=== PATIENT | female | born 1980 | race Caucasian/White ===

== ENCOUNTER → 2017-05-10 | Outpatient (REF) | payer OTHER ==
[~2017-05-10] MED LIST: IBU600 PO; ONDA4TAB PO; OXYC1TAB54 PO
[2017-05-10 15:31] LABS: PLATELET COUNT, AUTOMATED 236 K/uL (150-450)
== END ==
LOC: ZZSENDIN 11:42
PROVIDERS: ATTEND Student in an Organized Health Care Education/Training Program
DX: Z36.89 Encounter for other specified antenatal screening (principal); Z3A.00 Weeks of gestation of pregnancy not specified
CPT/HCPCS: 80074; 81001; 85025; 86592; 86762; 86850; 86900; 86901; 87088; 87491; 87591

== ENCOUNTER → 2017-05-20 | Outpatient (CLI) | payer OTHER | LOC: LAB 08:22 | PROVIDERS: ATTEND Student in an Organized Health Care Education/Training Program | DX: Z34.91 Encounter for supervision of normal pregnancy, unspecified, first trimester (principal) | CPT/HCPCS: 36415; 81001; 82310; 82374; 82435; 82565; 82947; 84132; 84295; 84520; 85027; 86592; 86762; 86850; 86900; 86901; 87088; 87340; 87491; 87591 ==

== ENCOUNTER → 2017-08-22 | Outpatient (CLI) | payer OTHER | LOC: LAB 11:34 | PROVIDERS: ATTEND Obstetrics & Gynecology | DX: Z36.89 Encounter for other specified antenatal screening (principal); Z3A.27 27 weeks gestation of pregnancy | CPT/HCPCS: 36415; 82950; 85027; 86850 ==

== ENCOUNTER 2017-11-16 04:58 | Inpatient (IN) | payer OTHER, MEDICAID ==
[2017-11-16] VITALS (22 sets, daily range): BP systolic 80–109; BP diastolic 32–79; Ht 175.3 cm; Wt 102.5 kg
[~2017-11-16] VITALS: Ht 175.3 cm; Wt 102.5 kg
[2017-11-16] MEDS ORDERED: FAMOTIDINE 20 MG/50 ML PREMIX IVPB ONE (05:05)
[2017-11-16] MEDS ORDERED: cefOXitin/DEX(*) 2GM/50ML PREM 50 ML IVPB ONE (05:05)
[2017-11-16] MEDS ORDERED: CITRIC ACID/SOD CITRATE 30 ML PO ONE (05:05)
[2017-11-16] MEDS ORDERED: METOCLOPRAMIDE 10 MG/2 ML SDV IVP ONE (05:05)
[2017-11-16] MEDS ORDERED: PREN-127 PO (05:52)
[2017-11-16] MEDS: LR(*) 1000 ML BAG 1,000 ML IV SCH ×2 (05:54→06:41)
[2017-11-16 06:02] LABS: PLATELET COUNT, AUTOMATED 212 K/uL (150-450)
[2017-11-16] MEDS ORDERED: OXYTOCIN 30 UNIT/D5LR 500 ML 500 ML ONE (06:38)
[2017-11-16] MEDS ORDERED: OXYTOCIN 10 UNIT/ML SDV ONE (06:38)
[2017-11-16] MEDS ORDERED: MORPHINE PF 5 MG/10 ML AMP ONE (06:38)
[2017-11-16] MEDS ORDERED: ONDANSETRON 4 MG/2 ML VIAL ONE (06:38)
[2017-11-16] MEDS ORDERED: DEXAMETHASONE SOD 4 MG/ML VIAL ONE (06:39)
--- NOTE | 2017-11-16 07:20 | Anesthesia OB Pre-Anes Eval ---
History of Present Illness OB Anesthesia Diagnosis: repeat c/section EDC: Nov 16, 2017 : 4 Para: 2 Pain Ratin Result Diagram: 11/16/17 0530 Height (Inches): 69.00 Weight (Pounds): 226 BMI Calculated: 33.37 Past Medical History Surgical History: Previous Anesthesia: epidural, spinal Attended Childbirth Classes?: No Hx Anesthesia Reactions: No Hx Family Anesthesia Reaction: No Home Meds Reported Medications Vits W-Ca,Fe,Fa(<1MG) ( VITAMINS) 1 Each Tablet, 1 EACH PO DAILY, TAB 11/16/17 Discontinued Reported Medications Ibuprofen (MOTRIN (OR EQUIV)) 600 Mg Tab, 600 MG PO Q6H Y, #30 09/28/12 Ondansetron (Zofran Odt) 4 Mg/Udtablet Tab.rapdis, 4 MG PO Q4-6H Y, #8 09/28/12 Oxycodone/Acetaminophen (PERCOCET 5/325 (OR EQUIV)) 1 Ea Tab, 1 - 2 EA PO Q4-6H Y, #20 09/28/12 Allergies: Uncoded Allergies: LYSINE (Allergy, Unknown, 11/16/17) Anesthesia OB ROS Neurological: migraines/headaches (with narcotic medications) Pulmonary: smoker (pks/day/yrs) (Recently quit) Airway Class: ll GI ROS: NPO Last Solids Date: Nov 15, 2017 Last Solids Time: 18:00 ASA Classification: 2 Assessment and Plan Anesthesia Plan: EDGAR (Planning Duramorph) MAHESH ANGELO CRNA Nov 16, 2017 07:19
[2017-11-16] MEDS ORDERED: ATROPINE SUL 0.4 MG/ML VIAL ONE (07:55)
[2017-11-16] MEDS ORDERED: ePHEDrine 25 MG/5 ML DISP.SYR IVP ONE (08:34)
[2017-11-16] MEDS ORDERED: KETOROLAC 30 MG/ML VIAL ONE (08:41)
[2017-11-16] MEDS ORDERED: OXYTOCIN 30 UNIT/D5LR 500 ML 500 ML IV PRN (09:15)
[2017-11-16] MEDS ORDERED: ONDANSETRON 4 MG/2 ML VIAL IVP PRN (09:15)
[2017-11-16] MEDS ORDERED: DLR(*) 1000 ML BAG 1,000 ML IV PRN (09:15)
[2017-11-16] MEDS ORDERED: PROMETHAZINE 25 MG/ML 1 ML AMP IVP PRN (09:15)
[2017-11-16] MEDS ORDERED: SIMETHICONE 80 MG CHEW CHEW PRN (09:15)
[2017-11-16] MEDS ORDERED: ZOLPIDEM TARTRATE 5 MG TAB PO PRN (09:15)
[2017-11-16] MEDS ORDERED: LANOLIN OINT 7 GM TUBE TP PRN (09:15)
[2017-11-16] MEDS ORDERED: INFLUENZA VIRUS VAC 0.5 ML SYR IM ONE (09:15)
--- NOTE | 2017-11-16 09:24 | History & Physical ---
History of Present Illness Age of Patient: 36 : 3 Para or TPAL: 2 EDC per LMP: Nov 16, 2016 Estimated Gestational Age: 40 Chief Complaint Scheduled History of Present Illness Presents for planned and PPTL. has been uncomplicated. RH negative and received Rhogam. Past Medical, Surgical, Family and Obstetric Histories reviewed. Please see OG chart. History Allergies: Uncoded Allergies: LYSINE (Allergy, Unknown, 11/16/17) Med Rec Home Meds Reported Medications Vits W-Ca,Fe,Fa(<1MG) ( VITAMINS) 1 Each Tablet, 1 EACH PO DAILY, TAB 11/16/17 Discontinued Reported Medications Ibuprofen (MOTRIN (OR EQUIV)) 600 Mg Tab, 600 MG PO Q6H Y, #30 09/28/12 Ondansetron (Zofran Odt) 4 Mg/Udtablet Tab.rapdis, 4 MG PO Q4-6H Y, #8 09/28/12 Oxycodone/Acetaminophen (PERCOCET 5/325 (OR EQUIV)) 1 Ea Tab, 1 - 2 EA PO Q4-6H Y, #20 09/28/12 Review of Systems Other All other systems reported Negative. Exam General Exam Vital Signs Vital Signs Date Time Temp Pulse Resp B/P (MAP) Pulse Ox O2 Delivery O2 Flow Rate FiO2 11/16/17 05:45 98.4 65 16 94/53 (67) 96 Room Air General Apperance: Alert/Awake/No Acute Distress Neuro: No Gross deficits Eyes: Normal Extraocular Movement & Vison Cardiovascular: Regular Rate and Rhythm Respiratory: No Respiratory Distress Abdomen: Soft, Non-Tender, Non-Distended Extremities: No Cyanosis,Clubbing or Edema Integumentary: Skin Intact without Lesions or Rash Psychological: Alert & Oriented X3, Appropriate Mood & Affect Fetus FHT Category: I Medical Decision Making Data Points Result Diagram: 11/16/17 0530 VTE Prophylasis: Adult Deep Vein Thrombosis/Pulmonary: No Pharmacological Contraindicati: Pt at Low Risk for VTE Mechanical Contraindications: Pt at Low Risk for VTE Assessment and Plan Problems: (1) Status post delivery Assessment & Plan: Scheduled delivery as planned (2) 40 weeks gestation of ESHA ORTA MD Nov 16, 2017 09:24
--- NOTE | 2017-11-16 09:33 | Post Operative Note ---
Operative Note - TRUCK TECHNICIAN Operative Day Date: Nov 16, 2017 Time: 09:24 Physicians Surgeon: Yesenia Textile Chemist: Jimena Borrero Anesthesia: Spinal Diagnosis Pre-Op Diagnosis: Previous 40 weeks Post-Op Diagnosis: same Procedure Findings: female, vtx, APGARS 9.9, 2900 gms Procedure(s): RLTCS PPTL Specimen Removed:(Maybe N/A): tubal segments Complications: none #[id number] Fluids Fluids: 1800 ml Estimated Blood Loss: 500 ml Dictated Date OP Note Dictated: Nov 16, 2017 Time OP Note Dictated: 09:26 Copies to: ESHA ORTA MD, TRAVIS MD Nov 16, 2017 09:33
--- NOTE | 2017-11-16 12:54 | OPERATIVE REPORT 1 ---
EVENT DATE: November 16, 2017 SURGEON: Kenneth Patterson MD ANESTHESIA: Spinal, Rafael Fofana CRNA STRATEGIC PARTNERSHIP MANAGER: Jimena Borrero PA-C PREOPERATIVE DIAGNOSES 1. Previous section x two. 2. Desired sterilization. POSTOPERATIVE DIAGNOSES 1. Previous section x two. 2. Desired sterilization. PROCEDURE PERFORMED 1. Repeat low transverse section via Pfannenstiel skin incision. 2. tubal ligation via modified Samy method. ESTIMATED BLOOD LOSS 500 mL. FLUIDS 1800 mL IV crystalloid. URINE OUTPUT 150 mL. FINDINGS Female , cephalic. Apgars 9 and 9. Weight 2900 grams. Scarring of the anterior abdominal wall and rectus muscles to omentum. Adherence of both tubal midsegments to the ovary, and more significant on the left with adherence of the distal tube and fimbria across the left adnexa. PROCEDURE IN DETAIL The patient was brought to the operating room with a working IV, and spinal anesthetic was administered. She was then moved to the dorsal lithotomy position with a leftward tilt and prepped and draped in the usual sterile fashion. Using the knife, a Pfannenstiel skin incision was made and dissected out the previous scar. It was carried through to the underlying rectus fascia. This was nicked in the midline and extended laterally with Hillman scissors. The rectus muscles were dissected off using sharp dissection with the Bovie, encountering omentum between the muscles bellies and extending to the abdominal wall rectus fascia. Rectus muscles were then in the midline, and peritoneum was entered sharply. The incisions were extended superiorly and inferiorly, taking care to avoid injury to the underlying bladder. Bladder blade was inserted. Vesicouterine peritoneum was entered sharply and extended laterally. Bladder flap was created digitally. This exposed the lower uterine segment of the uterus. It received a low transverse incision with the scalpel and carried through to the intra-amniotic space. There was clear fluid upon amniotomy. This incision was extended laterally using blunt and lateral traction. A hand was inserted. The infant's head was elevated to the incision and fundal pressure was applied. The 's head delivered atraumatically. Mouth and nose were again bulb suctioned, and delivery was completed. The cord was allowed to stop pulsating, and it was then clamped, cut, and the infant was passed to the awaiting resuscitation team. Cord sample was obtained. The placenta was delivered manually. Uterus was exteriorized and cleared of clots and debris. The uterine repair was then performed with an #1-Monocryl in a running locking stitch. Second suture of the same type was used to imbricate the first layer, completing a two-layer closure. This was hemostatic upon completion. Attention was then turned to the tubal ligation, in which the right fallopian tube was grasped in the isthmic portion and put on stretch. The ovary was carefully dissected away using the Bovie from its adherence to the tube. This freed the isthmic portion significantly to perform the ligation. A knuckle of tube was created with a plain gut tie, doubly ligated and a 2 cm segment of tube was excised and sent to pathology. On the left side , the adherence of the tube to the left ovary was more significant. There was an area free just proximal to the isthmic portion. Therefore, the mesosalpinx was transected to create space beneath the tube, and an approximately 4 cm segment of tube was exposed. A 2 cm segment of tube was excised while both ends were ligated with plain gut tie. Upon completion, all sites were hemostatic. The uterus was then returned to the abdomen, and bilateral pelvic gutters were irrigated and swept clear of clots and debris. The incision was again inspected in situ, found to be hemostatic. Both tubal segments were inspected and found to be hemostatic. The parietal peritoneum was then repaired using a 3-0 Vicryl in a running non-locking stitch. Rectus muscles were reapproximated in midline with the same stitch. A few capillary bleeders were cauterized on the muscle bellies. The rectus fascia was repaired using an #0-Vicryl in a running non-locking stitch. The subcuticular space was irrigated, swept clear of clots and debris and closed with a 3-0 Vicryl Plus in a running non-locking stitch. The skin was repaired with 4-0 Monocryl simple subdermal and covered with Dermabond skin adhesive. She tolerated the procedure well. Sponge, lap, needle and instrument counts were all correct x three. She was taken to recovery in stable condition. CHALINO
[2017-11-16] MEDS: KETOROLAC 30 MG/ML VIAL IVP SCH ×2 (14:59→21:17)
[2017-11-16] MEDS ORDERED: KETOROLAC 30 MG/ML VIAL IVP SCH (15:00)
[2017-11-16] MEDS: FAMOTIDINE 20 MG TAB PO SCH (21:11)
[2017-11-16] MEDS: DOCUSATE CALCIUM 240 MG CAP PO SCH (21:11)
[2017-11-16] MEDS: ACETAMINOPHEN 325 MG TAB PO PRN (22:29)
[2017-11-17 02:40] VITALS: BP 109/57
[2017-11-17] MEDS: KETOROLAC 30 MG/ML VIAL IVP SCH (02:42)
[2017-11-17 06:47] LABS: PLATELET COUNT, AUTOMATED 151 K/uL (150-450)
[2017-11-17 07:00] VITALS: BP 100/50
[2017-11-17] MEDS: IBUPROFEN 800 MG TAB PO SCH ×2 (08:39→17:13)
[2017-11-17] MEDS: FAMOTIDINE 20 MG TAB PO SCH ×2 (08:39→21:00)
[2017-11-17] MEDS: DOCUSATE CALCIUM 240 MG CAP PO SCH ×2 (08:39→21:25)
--- NOTE | 2017-11-17 08:41 | OB/GYN Progress Note ---
OB Subjective Progress Notes Subjective Doing well. Pain controlled and ambulating. Decker removed but has not voided yet. GI: NEG Nausea Pain: Mild OB Objective Physical Exam Vital Signs Date Time Temp Pulse Resp B/P (MAP) Pulse Ox O2 Delivery O2 Flow Rate FiO2 11/17/17 03:40 16 90 11/17/17 02:40 98.0 79 109/57 (74) Room Air Intake and Output 11/18/17 06:59 Output Total 300 ml Balance -300 ml Output Urine Total 300 ml General Appearance: Alert/Awake/No Acute Distress Neurological: No Gross deficits Eyes: Normal Extraocular Movement & Vison Cardiovascular: Normal Rhythm & Peripheral Pulses, Regular Rate and Rhythm Respiratory: No Respiratory Distress, Clear to Auscultation Abdomen: Soft, Non-Tender, Non-Distended Incision: Clean, Dry, Intact, Dermabond Extremities: No Cyanosis,Clubbing or Edema Integumentary: Skin Intact without Lesions or Rash Psychological: Alert & Oriented X3, Appropriate Mood & Affect Result Diagram: 11/17/17 0618 Assessment and Plan FILM CRITIC Plan: Routine Post- Care, Routine Post-Op Care Problems: (1) Status post delivery (2) 40 weeks gestation of (3) care and examination immediately after delivery ESHA ORTA MD Nov 17, 2017 08:41
[2017-11-17] MEDS ORDERED: DIPHTH/TETANUS/ACEL. PERTUSSIS IM ONLY ONE (09:15)
[2017-11-17] MEDS ORDERED: MEASLES,MUMP,RUBELLA VAC 0.5ML SUBQ ONE (09:15)
--- NOTE | 2017-11-17 13:36 | Anesthesia Post Eval Note ---
Anesthesia Post Eval Note melissa, afebrile. Pt able to participate in Eval: Yes Cardiovascular Status: Satisfactory Respiratory Status: Satisfactory Pain Managment: Satisfactory PO Nausea/Vomiting: Satisfactory Temperature Management: Satisfactory Mental Status: Satisfactory, Alert, Oriented X3 Post-Op Hydration Status: Satisfactory, Tolerating PO Well, Voiding w/o Difficulty Anesthesia Type: SAB Anesthesia Tolerance: Some mild facial itching, otherwise no problems. No symptoms PDPH. MAHESH ANGELO STUDIO SALES ASSOCIATE Nov 17, 2017 13:36
[2017-11-17 14:15] VITALS: BP 93/51
[2017-11-17 16:45] VITALS: BP 104/56
[2017-11-17 20:27] VITALS: BP 108/61
[2017-11-17] MEDS: ACETAMINOPHEN 325 MG TAB PO PRN (21:25)
[2017-11-17 23:40] VITALS: BP 116/58
[2017-11-18] MEDS: IBUPROFEN 800 MG TAB PO SCH ×2 (00:53→08:45)
[2017-11-18 06:45] VITALS: BP 108/64
[2017-11-18] MEDS: FAMOTIDINE 20 MG TAB PO SCH (08:45)
[2017-11-18] MEDS: DOCUSATE CALCIUM 240 MG CAP PO SCH (08:45)
--- NOTE | 2017-11-18 10:58 | OB/GYN Progress Note ---
OB Subjective Progress Notes Subjective Doing well. Pain controlled and ambulating well. Bladder draining well. GI: NEG Nausea : Voiding Well Pain: Mild OB Objective Physical Exam Vital Signs Date Time Temp Pulse Resp B/P (MAP) Pulse Ox O2 Delivery O2 Flow Rate FiO2 11/18/17 06:45 98.5 51 18 108/64 (79) Room Air 95.0 11/17/17 23:40 95 General Appearance: Alert/Awake/No Acute Distress Neurological: No Gross deficits Eyes: Normal Extraocular Movement & Vison Cardiovascular: Normal Rhythm & Peripheral Pulses, Regular Rate and Rhythm Respiratory: No Respiratory Distress, Clear to Auscultation Abdomen: Soft, Non-Tender, Non-Distended Incision: Clean, Dry, Intact, Dermabond Extremities: No Cyanosis,Clubbing or Edema Integumentary: Skin Intact without Lesions or Rash Psychological: Alert & Oriented X3, Appropriate Mood & Affect Result Diagram: 11/17/17 0618 Assessment and Plan DATASTAGE CONSULTANT Plan: Discharge Home Today Problems: (1) Status post delivery (2) 40 weeks gestation of (3) care and examination immediately after delivery ESHA ORTA MD Nov 18, 2017 10:58
[2017-11-18] MEDS ORDERED: IBUP800T37 PO (11:00)
[2017-11-18] MEDS ORDERED: PER PO (11:00)
--- NOTE | 2017-11-18 11:01 | OB/GYN Discharge Summary ---
Discharge Summary Reason for Hosp/Final Diag: (1) Status post delivery (2) 40 weeks gestation of (3) care and examination immediately after delivery [place] Vital Signs Vital Signs Date Time Temp Pulse Resp B/P (MAP) Pulse Ox O2 Delivery O2 Flow Rate FiO2 11/18/17 06:45 98.5 51 18 108/64 (79) Room Air 95.0 11/17/17 23:40 95 Weight (Pounds): 226 Result Diagram: 11/17/17617 Condition: Improved Discharge: Home, Self Prison Meds Active Scripts Oxycodone/Acetaminophen (OXYCODONE/ACETAMINOPHEN 5MG/325 MG) 5 Mg/325 Mg Tab, 1- 2 TAB PO Q4H Y for PAIN, #30 TAB 0 Refills Prov:KENNETH PATTERSON MD 11/18/17 Reported Medications Vits W-Ca,Fe,Fa(<1MG) ( VITAMINS) 1 Each Tablet, 1 EACH PO DAILY, TAB 11/16/17 Discontinued Reported Medications Ibuprofen (MOTRIN (OR EQUIV)) 600 Mg Tab, 600 MG PO Q6H Y, #30 09/28/12 Ondansetron (Zofran Odt) 4 Mg/Udtablet Tab.rapdis, 4 MG PO Q4-6H Y, #8 09/28/12 Oxycodone/Acetaminophen (PERCOCET 5/325 (OR EQUIV)) 1 Ea Tab, 1 - 2 EA PO Q4-6H Y, #20 09/28/12 Follow up Referrals: RETIREMENT ASSISTANT - In Two Weeks @ [facility] with Kenneth Patterson Md Follow up with: Dr. Patterson [phone] Follow up in: 6 wks PP or PO, 2 wks PO Discharge Diet: As Tolerates Discharge Activity: As Tolerates, No Heavy Lifting x 6 wks, No Heavy Lifting > 10lb, Pelvic Rest Copies to: KENNETH PATTERSON MD, TRAVIS MD Nov 18, 2017 11:01
== END 2017-11-18 11:50 | disposition home or self-care (01) | DRG 765 ==
LOC: OB 04:58
PROVIDERS: ADMIT Obstetrics & Gynecology; ATTEND Obstetrics & Gynecology
PROC: 10D00Z1 Extraction of Products of Conception, Low, Open Approach (ICD-10-PCS; principal; 2017-11-16 07:30)
PROC: 0UB70ZZ Excision of Bilateral Fallopian Tubes, Open Approach (ICD-10-PCS; 2017-11-16 07:30)
PROC: 3E0334Z Introduction of Serum, Toxoid and Vaccine into Peripheral Vein, Percutaneous Approach (ICD-10-PCS; 2017-11-17)
DX: O34.211 Maternal care for low transverse scar from previous cesarean delivery (principal); O36.0130 Maternal care for anti-D [Rh] antibodies, third trimester, not applicable or unspecified; Z30.2 Encounter for sterilization; Z88.8 Allergy status to other drugs, medicaments and biological substances
CPT/HCPCS: 36415; 85014; 85018; 85025; 85461; 86850; 86900; 86901; 88302; J0461; J0694; J1100; J1885; J2270; J2405; J2590; J2765; J2791; J3490; J7120

== ENCOUNTER 2018-03-07 13:45 | Outpatient (RCR) | payer OTHER, MEDICAID ==
[2017-11-16 05:45] VITALS: BMI 33.4
--- NOTE | 2018-01-17 13:10 | PT INITIAL EVALUATION ---
MEDICAL DIAGNOSIS: B hip pain, M25.559, Z39.2 TREATMENT DIAGNOSIS: B hip pain, M25.559, M54.5 LBP DATE OF ONSET: 08/07/17 SUBJECTIVE: Alaina Ledezma (Trish) presents to PT for B hip and LBP, SI pain developed during her third gestation, in the second trimester, with intermittent L sciatic nerve pain. She relates working in [employer] required repeated bending and lifting that flared her hips and low back. She delivered her baby 11/16/17, , and her pain hasn't subsided. She's lactating. Pain location is L>R posterior and lateral hips, SI joints and lower lumbar spine and described as ache. Pain scale is 7 on a ten point pain scale. Pain is worse with trying to sleep, car transfers, bending over, gardening, walking more than 4 blocks and better with pain medicine. 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 OBJECTIVE: Posture: R posterior and inflare ilium, L anterior and outflare ilium, posterior R pubic rami, apparent long R LE, midline lumbar spine. ROM: Lumbar AROM WNL flexion, 30% extension, with extension reducing pain, sidebend B pain free, rotation B painful at the L-S. B hip PROM at 90 deg. flexion is IR 0 deg, joint pain, ER 25 deg. and muscle pain. Strength: NT today- pain level would alter resistance. Palpation: Painful, high muscle tone B gluteals, posterior SI joint line, lumbar extensors Special Tests: Positive SI AROM for R tightness. Negative SLR, B. Positive hip scour, IFRAH for hip joint pain B. Mobility: Independent. Gait: Apparent long R LE, R femoral IR beyond midstance, stiff knee motion B. ASSESSMENT: Alaina Ledezma presents with B SI, LBP, hip pain from repeated bending, lifting and from ligament laxity consistent with third gestation. She had no LBP after manual therapy, e-stim and heat, ambulated with almost normal femoral rotation and angle of progression. She's started on a SI HEP to re- align her pelvis. Short Term Goals/Patient's Goals 4-6 weeks: [place] squats to sisal picker items from the floor, sleeps through the night, performs car transfers without LBP, SI or hip pain, hip IR 25 to 30 degrees. PLAN: Patient to be seen for Manual Therapy, Strengthening/condition, Ice/Heat, Range of Motion, Spinal Stabilization, Stretching, Neuromuscular Re-ed, Electrical Stim, Posture/Body mechanics, Gait Trg/Balance Trg, Home Exercise Program 3x/Week for 6 Weeks Thank you for this referral. If you have any questions, comments, or concerns about this report or plan, please contact me at . [facility]
--- NOTE | 2018-02-08 17:01 | PT PLAN OF CARE ---
Physician: Dr. Kenneth Patterson Patient is being seen: 2-3x/week Therapist: Deb Franklin, PT Medical Diagnosis: B hip pain, M25.559, Z39.2 Treatment Diagnosis: B hip pain, M25.559, M54.5 LBP Date of Onset: 08/07/17 Date of Initial Evaluation: 01/17/18 Date patient was last seen: 02/06/18 Number of treatments: 10 Number of cancellations/No shows: 0 INTERVENTIONS: Manual Therapy, Ice/Heat, Range of Motion/Stretching, Spinal Stabilization, Electrical Stim, Home Exercise Program GOALS/PATIENT'S GOAL: 4-6 weeks: [place] squats to pick up attendant items from the floor, sleeps through the night, performs car transfers without LBP, SI or hip pain (all progressing), hip IR 25 to 30 degrees (not met). Patient Compliance: Excellent Prognosis: Excellent Reasons for continuing therapy: S: Liseth relates she's sleeping, transferring and lifting with less LBP, but posterior hips ache 6-8/10 with gathering firewood, livestock care. Her LBP flares with repetitive lifting.She relates she had hip dysplasia as a child. Posture: Even PSIS, normal lumbar lordosis. ROM: Lumbar AROM WNL with extension reducing pain. B hip PROM at 90 deg. flexion is IR -10 degrees (tighter since eval), joint pain, ER 25 deg. and muscle pain. Strength: Core strength 3/5. HEP focuses on core and hip strengthening. Palpation: Painful, high muscle tone L psoas, B piriformis, posterior SI joint line, lumbar extensors Special Tests: Now SI AROM WNL. Negative SLR, B. Positive hip scour IFRAH for hip joint pain B. Mobility: Independent. A/P: Liseth Ledezma is reducing SI and LBP, but hips are tightening. Would you consider ordering x-rays of her hips before I advance hip joint mobilization, in case she has shallow sockets? If you agree, we'll continue 3x/week another 4 weeks to reduce pain and improve lumbopelvic strength with work, outdoor rural work, working to goals set. Thank you. CHALINO
[~2018-03-07 13:45] MED LIST changes: +IBUP800T37 PO; +PER PO; +PREN-127 PO
--- NOTE | 2018-03-07 15:20 | PT PLAN OF CARE ---
Physician: Dr. Kenneth Patterson Patient is being seen: 2x/week Therapist: Deb Franklin, PT Medical Diagnosis: B hip pain, M25.559, Z39.2 Treatment Diagnosis: B hip pain, M25.559, M54.5 LBP Date of Onset: 08/07/17 Date of Initial Evaluation: 01/17/18 Date patient was last seen: 03/07/18 Number of treatments: 16 Number of cancellations/No shows: 0 INTERVENTIONS: Manual Therapy, Range of Motion, Spinal Stabilization, Electrical Stim, Hot Pack, Posture/Body mechanics, Home Exercise Program GOALS/PATIENT'S GOAL: 4-6 weeks: [place] squats to flower picker items from the floor, sleeps through the night, performs car transfers without LBP, SI or hip pain (all met), hip IR 25 to 30 degrees (not met). Patient Compliance: Excellent Prognosis: Excellent Reasons for discontinuing therapy: S: Liseth relates her LBP/SI/B hip pain is resolved except for mild tightness with picking up items from the floor after a long day. O: Even PSIS, midline lumbar spine with normal lumbar lordosis. ROM: Lumbar and SI AROM WNL. B hip IR at 90 deg. flexion 5 degrees (history of hip dysplasia), ER WNL B. Strength: Core Strength 4/5. Gait: WNL. A/P: Alaina Ledezma has improved posture, functional tolerance to bending, and can continue strengthening her core with a basic spinal stabilization HEP. I will DC PT to HEP. Thank you. CHALINO
== END 2018-03-07 18:00 | disposition home or self-care (01) ==
LOC: PT 13:45
PROVIDERS: ATTEND Obstetrics & Gynecology
DX: Z39.2 Encounter for routine postpartum follow-up (principal); M25.551 Pain in right hip; M25.552 Pain in left hip; M54.5 Low back pain
CPT/HCPCS: 97162